=== PATIENT | female | born 1980 | race Two or more races ===

== ENCOUNTER 2022-04-05 00:15 | Emergency (ER) | payer MEDICARE, OTHER ==
[~2022-04-05] VITALS: Ht 157.5 cm; Wt 186.0 kg
[~2022-04-05 00:15] MED LIST: DOCU-141 PO; FOLI0.8C2 PO; IBUP-1955 PO; PNV11TAB PO; [UNRECOGNIZED DRUG - REMARK] PO
--- NOTE | 2022-04-05 00:56 | NUR ---
PATIENT AMBULATED TO ROOM #2, INFORMED OF PLAN OF CARE. NO S/S OF ANY DISTRESS NOTED, MD AT BEDSIDE FOR EXAM.
--- NOTE | 2022-04-05 01:09 | NUR ---
MD BACK AT BEDSIDE TALKING WITH PATIENT, ACI WERE GIVEN, PATIENT STATES UNDERSTANDING AND REMAINS STABLE FOR DISCHARGE.
[2022-04-05 03:01] VITALS: BP 161/95
== END 2022-04-05 01:10 | disposition home or self-care (01) ==
LOC: ER 00:28
DX: M25.562 Pain in left knee (principal); M25.561 Pain in right knee; F17.210 Nicotine dependence, cigarettes, uncomplicated; E66.01 Morbid (severe) obesity due to excess calories; Z68.45 Body mass index [BMI] 70 or greater, adult; I10 Essential (primary) hypertension; E78.5 Hyperlipidemia, unspecified; Z83.3 Family history of diabetes mellitus
CPT/HCPCS: A4663